=== PATIENT | female | born 1995 | race Two or more races ===

== ENCOUNTER → 2016-08-03 | Outpatient (CLI) | payer OTHER ==
[2016-08-03 12:14] LABS: CH 31.1; CHCM 36.1; HCT 36.1 % (34.0-46.0); HDW 3.02; HGB 12.6 gm/dL (11.4-16.0); MCH 30.3 pg (25.0-35.0); MCHC 34.9 g/dL (31.0-37.0); MCV 86.7 fL (80.0-100.0); Mean Platelet Volume 6.6; RBC 4.16 m/uL (3.80-5.40); RDW 12.8 % (11.5-15.5); WBC 8.8 k/uL (3.8-10.6)
[2016-08-03 12:34] LABS: Glucose 71 mg/dL (74-99); Non-African American GFR(MDRD) >60 (>60 ml/min/1.73 sqM)
[2016-08-03 13:06] LABS: Hepatitis B Surface Ag Index 0.06
[2016-08-04 05:34] LABS: Toxoplasma Antibody (IgG) <3.0 IU/mL (<7.2)
[2016-08-04 07:22] LABS: HIV-1/HIV-2 Ab Screen NONREAC (NON REAC)
== END | disposition home or self-care (01) ==
LOC: LABWHC1 11:23
PROVIDERS: ATTEND Obstetrics & Gynecology
DX: O26.811 Pregnancy related exhaustion and fatigue, first trimester (principal); Z3A.00 Weeks of gestation of pregnancy not specified
CPT/HCPCS: 36415; 82565; 82947; 85027; 86762; 86777; 86778; 86780; 86850; 86900; 86901; 87340; 87389

== ENCOUNTER → 2016-11-21 | Outpatient (CLI) | payer OTHER ==
[2016-11-21 09:23] LABS: CH 32.8; HDW 3.14; HGB 12.7 gm/dL (11.4-16.0); MCH 31.4 pg (25.0-35.0); MCHC 34.2 g/dL (31.0-37.0); MCV 91.7 fL (80.0-100.0); RBC 4.03 m/uL (3.80-5.40); RDW 14.3 % (11.5-15.5); WBC 8.8 k/uL (3.8-10.6)
== END | disposition home or self-care (01) ==
LOC: LABWHC1 08:12
PROVIDERS: ATTEND Obstetrics & Gynecology
DX: Z34.92 Encounter for supervision of normal pregnancy, unspecified, second trimester (principal); Z3A.00 Weeks of gestation of pregnancy not specified
CPT/HCPCS: 36415; 82950; 85027

== ENCOUNTER → 2016-11-27 | Outpatient (CLI) | payer OTHER ==
[2016-11-27 11:59] LABS: Glucose 3 Hour, Gest 57 mg/dL
== END | disposition home or self-care (01) ==
LOC: LABWHC1 07:36
PROVIDERS: ATTEND Obstetrics & Gynecology
DX: O24.419 Gestational diabetes mellitus in pregnancy, unspecified control (principal); Z3A.00 Weeks of gestation of pregnancy not specified
CPT/HCPCS: 36415; 82951; 82952

== ENCOUNTER 2016-12-01 11:17 | Outpatient (CLI) | payer OTHER ==
[2016-12-01 11:32] VITALS: BP 122/62; PULSE 72; RESP 16; TEMP 97.7
--- NOTE | 2016-12-02 08:28 | P.MSEPDOC ---
Presenting Problems - Arrival Data Date of Arrival on Unit: 12/01/16 Time of Arrival on Unit: 11:20 Mode of Transport: Ambulatory - Complaint OB-Reason for Admission/Chief Complaint: Decreased Movement Comment: no movment felt since noon yesterday 11/30/16 Medical History - Information : 2 Para: 1 Term: 1 : 0 Abortions: Spontaneous or Elective: 0 Number of Living Children: 1 - Gestational Age Expected Date of Delivery: 02/15/17 Gestational Age by CRISTIAN (wks/days): 29 Weeks and 2 Days Review of Systems - Review of Systems Constitutional: No problems Breast: No problems ENT: No problems Cardiovascular: No problems Respiratory: No problems Gastrointestinal: No problems Genitourinary: No problems Musculoskeletal: No problems Neurological: No problems Skin: No problems Vital Signs - Temperature Temperature: 97.7 F Temperature Source: Temporal Artery Scan - Pulse Right Sitting Brachial Pulse Rate: 72 Pulse Assessment Method: Automatic Cuff - Respirations Respiratory Rate: 16 Oxygen Delivery Method: Room Air O2 Sat by Pulse Oximetry: 97 - Blood Pressure Right Arm Sitting Blood Pressure: 122/62 Blood Pressure Mean: 82 Blood Pressure Source: Automatic Cuff Medical Screen Scoring (Pre) - Cervical Exam Dilation: Exam Deferred Effacement: Exam Deferred - Uterine Contractions Frequency: N/A Duration: N/A Intensity: N/A - Maternal Vital Signs Maternal Temperature: N/A Maternal Blood Pressure: N/A Signs of Preeclampsia: N/A Maternal Respirations: N/A - Maternal Trauma Maternal Trauma: N/A - Assessment Baseline FHR: 130 Heart Rate - NICHD Category: Category I (Normal) = 0 Position: N/A Station: N/A - Total Score Total Score (Pre): 0 - Level of Risk Level of Risk: Low (0-5) Physician Notification (Post) - Physician Notified Physician Notified Date: 12/01/16 Physician Notified Time: 12:15 Physician/Practitioner Notified:: dr Caballero New Order Received: Yes - Notification Comment Comment: Discharge home. Education completed re: tono melendez Disposition - Disposition OB Disposition: Discharge to home Discharge Date: 12/01/16 Discharge Time: 12:22 I agree with the RN Medical Screening Exam: Yes Risk & Benefit of care provided described in d/c instruction: Yes Diagnosis: DECREASED MOVEMENTS, THIRD TRIMESTER, FETUS 1
== END 2016-12-01 12:23 | disposition home or self-care (01) ==
LOC: FBPOP 11:17
PROVIDERS: ATTEND Obstetrics & Gynecology
DX: O36.8130 Decreased fetal movements, third trimester, not applicable or unspecified (principal); Z3A.29 29 weeks gestation of pregnancy
CPT/HCPCS: 59025; G0463; 99213

== ENCOUNTER 2017-02-11 20:38 | Inpatient (IN) | payer OTHER ==
[2017-02-11] MEDS ORDERED: OXYTOCIN 10 UNIT/ML 1 ML VIAL IM PRN (21:17)
[2017-02-11] MEDS ORDERED: METHYLERGONOVINE 0.2 MG/ML 1 ML AMP IM PRN (21:17)
[2017-02-11] MEDS ORDERED: LIDOCAINE 1% (PF) 10 MG/ML (30 ML SDV) SQ PRN (21:17)
[2017-02-11] MEDS ORDERED: CARBOPROST TROMETHAMINE 250 MCG/ML 1 ML AMP IM PRN (21:17)
[2017-02-11] MEDS ORDERED: TERBUTALINE 1 MG/ML VIAL SQ PRN (21:17)
[2017-02-11] MEDS ORDERED: OXYTOCIN 20 UNITS/1000 ML NS 1,000 ML IV SCH (21:30)
[2017-02-11] MEDS: LACTATED RINGERS 1,000 ML IV SCH (21:38)
[2017-02-11 21:54] VITALS: BMI 33.5
[2017-02-11 22:00] LABS: Basophils % (A) 0 %; CH 31.5; CHCM 35.2; Eosinophils # (A) 0.2 k/uL (0-0.7); Eosinophils % (A) 1 %; HCT 39.3 % (34.0-46.0); HGB 13.2 gm/dL (11.4-16.0); Luc # (Auto) 0.09; Luc % (Auto) 1; Lymphocytes # (A) 2.9 k/uL (1.0-4.8); Lymphocytes % (A) 21 %; MCH 30.3 pg (25.0-35.0); MCHC 33.6 g/dL (31.0-37.0); MCV 90.1 fL (80.0-100.0); Mean Platelet Volume 7.3; Monocytes # (A) 0.8 k/uL (0-1.0); Monocytes % (A) 6 %; Neutrophils # (A) 9.9 k/uL (1.3-7.7); Neutrophils % (A) 71 %; RBC 4.36 m/uL (3.80-5.40); RDW 15.1 % (11.5-15.5); WBC 13.9 k/uL (3.8-10.6); WBC (Perox) 14.38
[2017-02-11] MEDS ORDERED: BUTORPHANOL 1 MG/ML 1 ML VIAL IV PRN (22:20)
--- NOTE | 2017-02-11 22:35 | P.HPOB ---
History of Present Illness H&P Date: 02/11/17 Chief Complaint: Leaking fluid. This patient is a pleasant 21-year-old 2 para 1 female estimated date of confinement 02/15/2017 estimated gestational age 39-3/7 weeks who presents to labor and delivery with a gush of fluid at approximately 7:00 this evening. Patient's care is per . appears to be complicated by a grade 3 placenta. Patient denies other complications during this . Most recent ultrasound on January 05 showed growth that was normal. Review of Systems Constitutional: Denies chills, Denies fever Cardiovascular: Denies chest pain, Denies shortness of breath Gastrointestinal: Reports heartburn Genitourinary: Reports Menstruation: Reports amenorrhea Past Medical History Additional Past Medical History / Comment(s): Patient has attention deficit disorder, TMJ, patellar tendinitis, and history of headaches. History of Any Multi-Drug Resistant Organisms: None Reported Past Surgical History: No Surgical Hx Reported Past Anesthesia/Blood Transfusion Reactions: No Reported Reaction Past Psychological History: ADD/ADHD Smoking Status: Never smoker Past Alcohol Use History: None Reported Past Drug Use History: None Reported - Past Family History Mother Family Medical History: Thyroid Disorder Medications and Allergies Home Medications Medication Instructions Recorded Confirmed Type Pnv,Calcium 72/Iron/Folic Acid 1 each PO DAILY 11/19/14 02/11/17 History [ Plus Tablet] Allergies Allergy/AdvReac Type Severity Reaction Status Date / Time No Known Allergies Allergy Verified 02/11/17 20:49 Exam - Vital Signs Vital signs: Vital Signs Temp Pulse Resp BP 02/11/17 20:50 97.9 F 90 18 139/90 Intake and Output 02/11/17 02/11/17 02/11/17 06:59 14:59 22:59 Other: Weight 85.729 kg Patient Weight 02/12/17 06:59 Weight 85.729 kg - OBG Physical Exam Abdomen: bowel sounds normal, no diffuse tenderness, no bruit present, no guarding noted, no hepatomegaly, no splenomegaly, no mass Vagina: normal moisture, no discharge Cervix: Cervix is 2-3 cm dilated soft -2 station. Patient reports clear fluid drainage however I see no amniotic fluid. Cervix: no lesion, no discharge Uterus: enlarged (Follow-up her Dr. Caballero was 36.5 cm) Results blood work shows she is B positive, rubella nonimmune, hepatitis B, RPR was nonreactive, group B strep was negative. Result Diagrams: 02/11/17 21:40 Abnormal Lab Results - Last 24 Hours (Table) 02/11/17 Range/Units 21:40 WBC 13.9 H (3.8-10.6) k/uL Neutrophils # 9.9 H (1.3-7.7) k/uL Assessment and Plan (1) Third trimester Narrative/Plan: This patient is a pleasant 21-year-old 2 para 1 female 39-3/7 weeks gestation with spontaneous rupture membranes. Patient this time is requested to ambulate. There is no cervical change with ambulation and recommended proceed with Pitocin augmentation of labor. Anticipate vaginal delivery. Current Visit: Yes Status: Acute Code(s): Z34.93 - ENCNTR FOR SUPRVSN OF NORMAL PREG, UNSP, THIRD TRIMESTER SNOMED Code(s): 86024499 (2) Spontaneous rupture of amniotic membranes Current Visit: Yes Status: Acute Code(s): WKT0979 - SNOMED Code(s): 657257675
[2017-02-11] MEDS ORDERED: fentaNYL (PF) 50 MCG/ML 5 ML AMP ONE (23:50)
[2017-02-11] MEDS ORDERED: SODIUM CHLORIDE 0.9% 100 ML BAG ONE (23:50)
[2017-02-11] MEDS ORDERED: BUPIVACAINE (PF) 0.25% 30 ML VIAL ONE (23:50)
[2017-02-12] MEDS ORDERED: BUPIVACAINE (PF) 0.25% 25 ML, fentaNYL (PF) 200 MCG in SODIUM CHLORIDE 0.9% 71 ML EPIDURAL ONE (00:09)
[2017-02-12] MEDS: LACTATED RINGERS 1,000 ML IV SCH (00:09)
[2017-02-12] MEDS ORDERED: HYDROCORTISONE 2.5% RECTAL CREAM 30 GM TUBE RECTAL PRN (03:18)
[2017-02-12] MEDS ORDERED: MEASLES-MUMPS-RUBELLA VACC/PF 12,500 UNIT/0.5 ML VIAL SQ ONE (03:18)
[2017-02-12] MEDS ORDERED: diphenhydrAMINE 25 MG CAP PO PRN (03:18)
[2017-02-12] MEDS ORDERED: ACETAMINOPHEN TAB 325 MG TAB PO PRN (03:18)
[2017-02-12] MEDS ORDERED: BENZOCAINE/MENTHOL SPRAY 1 GM/SPRAY AEROSOL TOPICAL PRN (03:18)
[2017-02-12] MEDS ORDERED: BISACODYL 10 MG SUPP RECTAL PRN (03:18)
[2017-02-12] MEDS ORDERED: LANOLIN CREAM 5 GM TUBE TOPICAL PRN (03:18)
[2017-02-12] MEDS ORDERED: Acetaminophen-Codeine 300-30mg TAB PO PRN ×2 (03:18)
[2017-02-12] MEDS ORDERED: ZOLPIDEM 5 MG TAB PO PRN (03:18)
[2017-02-12] MEDS ORDERED: diphenhydrAMINE 50 MG/ML 1 ML VIAL IVP PRN (03:18)
[2017-02-12] MEDS ORDERED: WITCH HAZEL 1 EACH MED..PAD TOPICAL PRN (03:18)
[2017-02-12] MEDS ORDERED: SIMETHICONE 80 MG CHEWABLE PO PRN (03:18)
--- NOTE | 2017-02-12 03:23 | P.PROBDLV ---
Vaginal Delivery Note - . Vaginal Delivery Note: Normal spontaneous vaginal delivery viable female infant Apgars 8 and 9. Please see dictated H&P for intimate details of this patient's admission. Brief summary this pleasant 21-year-old 2 para 1 female 39-4/7 weeks gestation was admitted to labor and delivery with spontaneous rupture membranes at 7:00 last evening. Patient is admitted she does ambulate and was then given Pitocin augmentation of labor. Patient gets an epidural for pain control. Patient progresses quickly and pushes one time and pushes the head to the perineum. Posterior perineum was supported we have controlled delivery of 's head over the intact perineum. Mouth and nares are bulb suctioned. There is a nuchal cord 1. With gentle downward traction we then have deliver the anterior and posterior shoulder and rest this infant's body. Some vigorous viable female Apgars are 8 and 9 delivery time was 0256 hours. After delivery of the infant the is late on the mother's abdomen. At this time the cord is then doubly clamped and cut. Placenta spontaneously delivered intact. Inspection of perineum shows a first-degree posterior laceration, no other lacerations are noted. This is infiltrated with 1% lidocaine and reapproximated using a 3-0 Vicryl in the usual fashion good reapproximation is noted. Assessment blood loss 100 mL there is no complications. All counts correct 3. Infant and mother stable delivery room.
[2017-02-12] MEDS: IBUPROFEN 600 MG TAB PO PRN ×2 (07:34→15:46)
--- NOTE | 2017-02-12 11:41 | P.MSEPDOC ---
Presenting Problems - Arrival Data Date of Arrival on Unit: 02/11/17 Time of Arrival on Unit: 21:07 Mode of Transport: Ambulatory - Complaint OB-Reason for Admission/Chief Complaint: Rule Out SROM Medical History - Information : 2 Para: 1 Term: 1 : 0 Abortions: Spontaneous or Elective: 0 Number of Living Children: 1 - Gestational Age Gestational Age by CRISTIAN (wks/days): 39 Weeks and 4 Days Review of Systems - Review of Systems Constitutional: No problems Breast: No problems ENT: No problems Cardiovascular: No problems Respiratory: No problems Gastrointestinal: No problems Genitourinary: No problems Musculoskeletal: No problems Neurological: No problems Skin: No problems Vital Signs - Temperature Temperature: 98.6 F Temperature Source: Oral - Pulse Right Brachial Pulse Rate: 78 Pulse Assessment Method: Pulse Oximetry - Respirations Respiratory Rate: 16 Oxygen Delivery Method: Room Air - Blood Pressure Right Arm Blood Pressure: 122/73 Blood Pressure Mean: 89 Blood Pressure Source: Automatic Cuff Medical Screen Scoring (Pre) - Cervical Exam Dilation: 1-3 cm = 1 Effacement: More than 50% = 2 Membranes: Ruptured = 3 - Uterine Contractions Frequency: > 5 minutes apart = 1 Duration: N/A Intensity: N/A - Maternal Vital Signs Maternal Temperature: N/A Maternal Blood Pressure: N/A Signs of Preeclampsia: N/A Maternal Respirations: N/A - Pain Assessment Pain Intensity: 0 - Maternal Trauma Maternal Trauma: N/A - Assessment Baseline FHR: 130 Heart Rate - NICHD Category: Category I (Normal) = 0 - Total Score Total Score (Pre): 7 - Level of Risk Level of Risk: Medium (6-9) Physician Notification (Pre) - Physician Notified Physician Notified Date: 02/11/17 Physician Notified Time: 21:09 Physician/Practitioner Notifed:: Dr. Oliveira Spoke With: Dr. Oliveira New Order Received: Yes - Notification Comment Comment: Dr. Oliveira in hospital in a sleep room, will call when needed Disposition - Disposition OB Disposition: Admit, LDRP Suite I agree with the RN Medical Screening Exam: Yes Risk & Benefit of care provided described in d/c instruction: Yes Diagnosis: ENCOUNTER FOR FULL-TERM UNCOMPLICATED DELIVERY
[2017-02-12] MEDS: SENNOSIDES-DOCUSATE SODIUM 1 EACH TAB PO SCH ×2 (15:19→16:53)
[2017-02-13] MEDS: IBUPROFEN 600 MG TAB PO PRN (03:42)
[2017-02-13] MEDS: SENNOSIDES-DOCUSATE SODIUM 1 EACH TAB PO SCH (08:01)
[2017-02-13 10:55] VITALS: BP 123/69; PULSE 69; RESP 18; TEMP 98.1
--- NOTE | 2017-02-13 11:10 | P.DS ---
Providers Date of admission: 02/11/17 21:07 Expected date of discharge: 02/13/17 Attending physician: Zohreh Caballero Primary care physician: Stated None Hospital Course: Elena is doing very well day 1. She is involuting, voiding, and she is tolerating her diet. She voices no complaints and is requesting discharge home today. Vital signs are stable and afebrile. Heart regular, lungs clear, extremities without pain. Abdomen soft uterus is firm lochia is reported light. Assessment day 1. Plan discharged home follow up with Dr. Milton in 6 weeks. All of the discharge instructions were reviewed and all questions are answered for her prior to discharge her discharge. Patient Condition at Discharge: Good Plan - Discharge Summary New Discharge Prescriptions: No Action Pnv,Calcium 72/Iron/Folic Acid [ Plus Tablet] 1 each PO DAILY Discharge Medication List Pnv,Calcium 72/Iron/Folic Acid [ Plus Tablet] 1 each PO DAILY 11/19/14 [ History] Follow up Appointment(s)/Referral(s): Zohreh Caballero DO [Doctor of Osteopathic Medicine] - 1 Week Activity/Diet/Wound Care/Special Instructions: O heavy lifting, limit stairs and driving, and pelvic rest. If any high temperatures, heavy bleeding, or severe pain call my office Discharge Disposition: HOME SELF-CARE
== END 2017-02-13 12:30 | disposition home or self-care (01) | DRG 560 ==
LOC: FBPOP 20:38 → 4FBP 21:07
PROVIDERS: ADMIT Obstetrics & Gynecology; ATTEND Obstetrics & Gynecology
PROC: 10E0XZZ Delivery of Products of Conception, External Approach (ICD-10-PCS; principal; 2017-02-12)
PROC: 0HQ9XZZ Repair Perineum Skin, External Approach (ICD-10-PCS; 2017-02-12)
DX: O69.81X0 Labor and delivery complicated by cord around neck, without compression, not applicable or unspecified (principal); O99.344 Other mental disorders complicating childbirth; F90.9 Attention-deficit hyperactivity disorder, unspecified type; Z37.0 Single live birth; O70.0 First degree perineal laceration during delivery; O99.89 Other specified diseases and conditions complicating pregnancy, childbirth and the puerperium; M76.50 Patellar tendinitis, unspecified knee; M26.609 Unspecified temporomandibular joint disorder, unspecified side; Z3A.39 39 weeks gestation of pregnancy; Z84.89 Family history of other specified conditions
CPT/HCPCS: 59025; 84112; 85025; 88307; 90707; 99213

== ENCOUNTER → 2018-02-16 | Outpatient (CLI) | payer OTHER ==
[2018-02-16 14:09] LABS: Basophils % (A) 0 %; Eosinophils # (A) 0.2 k/uL (0-0.7); Eosinophils % (A) 2 %; HCT 39.9 % (34.0-46.0); Lymphocytes % (A) 41 %; MCH 30.7 pg (25.0-35.0); MCHC 35.2 g/dL (31.0-37.0); MCV 87.3 fL (80.0-100.0); Mean Platelet Volume 6.5; Monocytes # (A) 0.3 k/uL (0-1.0); Monocytes % (A) 5 %; Neutrophils # (A) 3.6 k/uL (1.3-7.7); Neutrophils % (A) 50 %; Platelet Count 317 k/uL (150-450); RBC 4.57 m/uL (3.80-5.40); RDW 12.6 % (11.5-15.5); WBC 7.1 k/uL (3.8-10.6)
[2018-02-16 14:21] LABS: ALT 27 U/L (9-52); AST 26 U/L (14-36); Albumin 4.7 g/dL (3.5-5.0); Alkaline Phosphatase 77 U/L (38-126); Anion Gap 8 mmol/L; Blood Urea Nitrogen 7 mg/dL (7-17); Calcium 9.5 mg/dL (8.4-10.2); Carbon Dioxide 25 mmol/L (22-30); Chloride 107 mmol/L (98-107); Cholesterol 149 mg/dL (<200); Glucose 84 mg/dL (74-99); HDL Cholesterol 41 mg/dL (40-60); LDL Cholesterol,Calculated 97 mg/dL (0-99); Potassium 4.8 mmol/L (3.5-5.1); Sodium 140 mmol/L (137-145); Total Bilirubin 0.7 mg/dL (0.2-1.3); Total Protein 7.6 g/dL (6.3-8.2); Triglycerides 57 mg/dL (<150)
[2018-02-16 14:36] LABS: T4, Free (Free Thyroxine) 0.87 ng/dL (0.78-2.19)
--- NOTE | 2018-02-21 08:52 | USB ---
Reason for exam: clinical finding. Indicated problem(s): lump or thickening in the right breast. Physical Findings: Nurse Summary: Patient complains of right breast lump x 2 years, increase in size, currently (nurse mj). US Breast BILAT Right complete breast ultrasound includes all four quadrants, the retroareolar region and axilla. Finding demonstrates a 0.6 x 0.5 x 1.0cm solid lesion at 11 o'clock, possible fibroadenoma or lactating adenoma, 6 month follow up recommended. Patient reports it has been there for 2 years, now slightly larger. Left complete breast ultrasound includes all four quadrants, the retroareolar region and axilla. Finding demonstrates nipple ducts. No sonographic correlate to the nurse palpated 3 o'clock finding. These results were verbally communicated with the patient and result sheet given to the patient on 02/16/18. ASSESSMENT: Probably benign, BI-RAD 3 RECOMMENDATION: Ultrasound of the right breast in 6 months. (11 o'clock palpable)
== END | disposition home or self-care (01) ==
LOC: RADUSWWP 12:10
PROVIDERS: ATTEND Family Medicine
DX: N63.11 Unspecified lump in the right breast, upper outer quadrant (principal); Z13.220 Encounter for screening for lipoid disorders; Z00.00 Encounter for general adult medical examination without abnormal findings; E04.0 Nontoxic diffuse goiter
CPT/HCPCS: 36415; 80053; 80061; 84439; 84443; 84481; 85025; 86376

== ENCOUNTER → 2018-08-10 | Outpatient (CLI) | payer SELFPAY ==
--- NOTE | 2018-08-11 08:54 | USB ---
Reason for exam: follow-up at short interval from prior study. Physical Findings: Nurse Summary: right breast palpable 12 o'clock 1 x 1.5cm, movable, non-tender (nurse ts). US Breast RT Right complete breast ultrasound includes all four quadrants, the retroareolar region and axilla. Finding demonstrates no cystic or solid lesion seen. No reproducible mass. Previously seen possible lactating fibroadenoma is no longer clearly defined. As this is palpable, if there is any growth clinically repeat ultrasound would be recommended. These results were verbally communicated with the patient and result sheet given to the patient on 08/10/18. ASSESSMENT: Negative, BI-RAD 1 RECOMMENDATION: Routine screening mammogram of both breasts at age 40. (or sooner if clinically indicated) Manage patient on a clinical basis.
== END | disposition home or self-care (01) ==
LOC: RADUSWWP 14:14
PROVIDERS: ATTEND Family Medicine
DX: R92.8 Other abnormal and inconclusive findings on diagnostic imaging of breast (principal)

== ENCOUNTER 2018-10-30 18:26 | Emergency (ER) | payer OTHER ==
--- NOTE | 2018-10-30 19:10 | ED ---
Psych HPI - General Chief Complaint: Psychiatric Symptoms Stated Complaint: EPS eval Time Seen by Provider: 10/30/18 18:29 Source: patient, police, EMS Mode of arrival: ambulatory - History of Present Illness Initial Comments: 23-year-old female patient presents to the emergency department today for psychiatric evaluation. Patient states that today she is having thoughts of jaspal cide and did go into the garage and get the shot gun. Patient states she did pull the trigger however the gun was not loaded. States she was unsure how to load the gun. States her intention was to kill herself. Patient reports history of frequent mood swings. States some days it is hard for her to get out of bed and other days she feels that life is great and she is able to function normally. Patient states that she has tried several times in the past to commit suicide. Patient states that she did have counseling as a teenager however reports none as an adult. Denies ever taking any medications for depression. She does admit to drinking alcohol today. Denies street drug use. Denies any chance of . She denies any current physical symptoms or concerns. Patient denies any recent rash, fever, chills, shortness breath, chest pain, abdominal pain, nausea, vomiting, diarrhea, constipation, back pain, numbness, tingling, dizziness, weakness, hematuria, dysuria, urinary urgency, urinary frequency, headache, visual changes, or any other complaints. - Related Data Home Medications Medication Instructions Recorded Confirmed No Known Home Medications 10/30/18 10/30/18 Allergies Allergy/AdvReac Type Severity Reaction Status Date / Time No Known Allergies Allergy Verified 10/30/18 19:05 Review of Systems ROS Statement: Those systems with pertinent positive or pertinent negative responses have been documented in the HPI. ROS Other: All systems not noted in ROS Statement are negative. Past Medical History Past Medical History: No Reported History Additional Past Medical History / Comment(s): Patient has attention deficit disorder, TMJ, patellar tendinitis, and history of headaches. History of Any Multi-Drug Resistant Organisms: None Reported Past Surgical History: No Surgical Hx Reported Past Anesthesia/Blood Transfusion Reactions: No Reported Reaction Past Psychological History: ADD/ADHD Smoking Status: Never smoker Past Alcohol Use History: Occasional Past Drug Use History: None Reported - Past Family History Mother Family Medical History: Thyroid Disorder General Exam Limitations: no limitations General appearance: alert, in no apparent distress, other (Physical well- developed, well-nourished adult female patient in no acute distress. Vital signs upon presentation are temperature 98.1F, pulse 95, respirations 18, blood pressure 141/89, pulse ox 99% on room air.) Eye exam: Present: normal appearance, PERRL, EOMI. Absent: scleral icterus, conjunctival injection, periorbital swelling ENT exam: Present: normal exam, normal oropharynx, mucous membranes moist Respiratory exam: Present: normal lung sounds bilaterally. Absent: respiratory distress, wheezes, rales, rhonchi, stridor Cardiovascular Exam: Present: regular rate, normal rhythm, normal heart sounds. Absent: systolic murmur, diastolic murmur, rubs, gallop, clicks GI/Abdominal exam: Present: soft, normal bowel sounds. Absent: distended, tenderness, guarding, rebound, rigid Neurological exam: Present: alert, oriented X3, CN II-XII intact Psychiatric exam: Present: depressed, suicidal ideation, other (Tearful). Absent: normal affect, normal mood, homicidal ideation Skin exam: Present: warm, dry, intact, normal color. Absent: rash Course Vital Signs 10/30/18 18:27 Temperature 98.1 F Pulse Rate 95 Respiratory 18 Rate Blood Pressure 141/89 O2 Sat by Pulse 99 Oximetry Medical Decision Making - Medical Decision Making 23-year-old female patient presented to the emergency department today for evaluation of suicidal ideation. Patient was found in the garage with a shotgun attempting to kill herself. Patient has been struggling with depression for quite some time. She has not taking any medications currently. She was seen and evaluated by emergency psychiatric services after being medically clear. It is felt that she would benefit from inpatient mission at this time will be transferred to the mental health unit. - Lab Data Lab Results 10/30/18 10/30/18 Range/Units 18:30 18:30 Urine HCG, Qual Not Detected (Not Detectd) Urine Opiates Screen Not Detected (NotDetected) Ur Oxycodone Screen Not Detected (NotDetected) Urine Methadone Screen Not Detected (NotDetected) Ur Propoxyphene Screen Not Detected (NotDetected) Ur Barbiturates Screen Not Detected (NotDetected) U Tricyclic Antidepress Not Detected (NotDetected) Ur Phencyclidine Scrn Not Detected (NotDetected) Ur Amphetamines Screen Not Detected (NotDetected) U Methamphetamines Scrn Not Detected (NotDetected) U Benzodiazepines Scrn Not Detected (NotDetected) Urine Cocaine Screen Not Detected (NotDetected) U Marijuana (THC) Screen Not Detected (NotDetected) Disposition Clinical Impression: Depression, Suicidal ideation Disposition: TRANSFER TO PSYCH HOSP/UNIT Condition: Serious Referrals: Mally Brandon DO [Primary Care Provider] - 1-2 days - Out of Hospital Transfer - Req. Specs Out of Hospital Transfer - Requested Specifics: Psychiatric Non-ICU ([facility])
[2018-10-30] MEDS ORDERED: LORazepam 1 MG TAB PO STA ×2 (19:17→20:37)
[2018-10-30 19:26] LABS: Amphetamine Screen,Urine Not Detected (NotDetected); Barbiturate Screen,Urine Not Detected (NotDetected); Benzodiazepines Screen,Urine Not Detected (NotDetected); Cocaine Screen,Urine Not Detected (NotDetected); Methadone Screen, Urine Not Detected (NotDetected); Opiate Screen,Urine Not Detected (NotDetected); Oxycodone Screen, Urine Not Detected (NotDetected); Phencyclidine Screen,Urine Not Detected (NotDetected); Tricyclic Antidepressant,Urine Not Detected (NotDetected); Urn Cannabinoid Scrn Not Detected (NotDetected)
[2018-10-30] MEDS ORDERED: NICOTINE 21MG/24HR PATCH TRANSDERM STA (19:56)
[2018-10-30] MEDS ORDERED: ACETAMINOPHEN TAB 500 MG TAB PO STA (20:10)
[2018-10-31 02:42] LABS: Basophils # (A) 0.1 k/uL (0-0.2); Basophils % (A) 1 %; Eosinophils # (A) 0.2 k/uL (0-0.7); Eosinophils % (A) 4 %; HCT 38.4 % (34.0-46.0); HGB 13.3 gm/dL (11.4-16.0); Lymphocytes % (A) 37 %; MCHC 34.6 g/dL (31.0-37.0); MCV 89.6 fL (80.0-100.0); Mean Platelet Volume 6.9; Monocytes # (A) 0.3 k/uL (0-1.0); Monocytes % (A) 6 %; Neutrophils # (A) 2.8 k/uL (1.3-7.7); Neutrophils % (A) 51 %; Platelet Count 258 k/uL (150-450); RBC 4.28 m/uL (3.80-5.40); RDW 14.1 % (11.5-15.5); WBC 5.5 k/uL (3.8-10.6)
[2018-10-31 02:52] LABS: ALT 32 U/L (9-52); AST 26 U/L (14-36); African American GFR (CKD) >90 (>60 ml/min/1.73 sqM); Albumin 4.2 g/dL (3.5-5.0); Alcohol <10 mg/dL; Alkaline Phosphatase 70 U/L (38-126); Anion Gap 10 mmol/L; Blood Urea Nitrogen 10 mg/dL (7-17); Calcium 9.2 mg/dL (8.4-10.2); Carbon Dioxide 23 mmol/L (22-30); Chloride 109 mmol/L (98-107); Glucose 84 mg/dL (74-99); Potassium 4.1 mmol/L (3.5-5.1); Sodium 142 mmol/L (137-145); Total Bilirubin 0.3 mg/dL (0.2-1.3); Total Protein 6.7 g/dL (6.3-8.2)
[2018-10-31 06:17] VITALS: BP 129/76; PULSE 62; RESP 16; TEMP 98
== END 2018-10-31 08:09 ==
LOC: EC 18:26
DX: F32.9 Major depressive disorder, single episode, unspecified (principal); R45.851 Suicidal ideations
CPT/HCPCS: 82075; 36415; 80053; 85025; 81025; 80306; 99285; G0480; 80320

== ENCOUNTER → 2020-11-01 | Outpatient (CLI) | payer OTHER ==
--- NOTE | 2020-11-05 14:31 | USB ---
Reason for exam: clinical finding. Indicated problem(s): lump or thickening in both breasts. Physical Findings: Nurse Summary: Patient complains of right breast lump x 5 years, left breast lumps x 3 for 2 weeks (nurse mj). US Breast BILAT Right complete breast ultrasound includes all four quadrants, the retroareolar region and axilla. Finding demonstrates a 1.6 x 1.3 x 0.6cm lobular, solid, hypoechoic lesion at 11 o'clock, a 0.7 x 0.6 x 0.3cm lymph node at 11 o'clock and a 1.1 x 0.8 x 0.6cm lymph node at the axilla. Left complete breast ultrasound includes all four quadrants, the retroareolar region and axilla. Finding demonstrates a 1.6 x 1.5 x 0.6cm lobular, irregular lesion at 12 o'clock, subtle, suspicious, biopsy recommended, a 0.7 x 0.8 x 0.4cm lymph node at 3 o'clock and a 0.5 x 0.7 x 0.4cm lobular, solid lesion at 11 o'clock. These results were verbally communicated with the patient and result sheet given to the patient on 11/01/20. ASSESSMENT: Suspicious, BI-RAD 4 RECOMMENDATION: Ultrasound core biopsy of both breasts. (right and left breast at 11 o'clock) Called Dr. Brandon's office with mammographic findings. Biopsy scheduled for 11/13/20 at 10:30. PRELIMINARY REPORT CALLED AND FAXED TO DR. BRANDON ON 11/05/20.
== END | disposition home or self-care (01) ==
LOC: RADUSWWP 14:54
PROVIDERS: ATTEND Family Medicine
DX: N63.11 Unspecified lump in the right breast, upper outer quadrant (principal)

== ENCOUNTER → 2020-11-13 | Day surgery (SDC) | payer OTHER ==
[2020-11-13 10:03] VITALS: RESP 16
--- NOTE | 2020-11-13 11:40 | USB ---
EXAMINATION TYPE: US biopsy breast VAD RT, US discontinued breast bx LT DATE OF EXAM: 11/13/2020 CLINICAL HISTORY: N63 Lump. TECHNIQUE: Ultrasound guided core biopsy of right 11:00 breast. Discontinued biopsy left breast 12:00. COMPARISON: NONE FINDINGS: The procedure of ultrasound guided core biopsy was explained to the patient. Benefits, alternatives, and risks were discussed. An informed consent was then obtained. Prebiopsy ultrasound of the left 12:00 area of concern was performed. A distinct lesion could not be seen with certainty and therefore biopsy was discontinued. Six-month follow-up is advised. The patient was placed in supine positioning for imaging and for the procedure. The overlying skin was prepped and draped in usual sterile fashion. Lidocaine buffered with bicarbonate was used as anesthetic into the skin and subcutaneous tissue up to area of concern in the right 11:00 breast. A elyse was made with surgical scalpel. Under ultrasound guidance, a 12-gauge vacuum assisted biopsy gun device was used to obtain 4 core samples. Following this, a biopsy clip was left in lesion. The patient tolerated the procedure well without any immediate complication. The patient was kept in the radiology department for short stay after the procedure and then discharged home in stable condition. IMPRESSION: Successful, uncomplicated ultrasound guided core biopsy of area of concern in the right 11:00 breast, full pathology results to follow. Six-month follow-up by ultrasound for left 12:00 area of concern. 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 Rare microcalcification identified. See note. Recommendation Follow up ultrasound of the right breast in 6 months. SANTO
[2020-11-13 12:07] VITALS: BP 106/70; PULSE 55; TEMP 98.1
== END ==
LOC: RADUSWWP 09:33
PROVIDERS: ATTEND Family Medicine
DX: D24.1 Benign neoplasm of right breast (principal); N62 Hypertrophy of breast; N60.11 Diffuse cystic mastopathy of right breast; R92.0 Mammographic microcalcification found on diagnostic imaging of breast; N60.81 Other benign mammary dysplasias of right breast
CPT/HCPCS: 88305; 88342; 19083; 76641; A4648; J2001

== ENCOUNTER → 2021-06-05 | Outpatient (CLI) | payer OTHER ==
--- NOTE | 2021-06-05 10:51 | USB ---
Reason for exam: follow-up at short interval from prior study. History: Benign US biopsy breast VAD RT of the right breast, November 13, 2020. US discontinued breast bx LT of the left breast, November 13, 2020. Physical Findings: A clinical breast exam by your physician is recommended on an annual basis and results should be correlated with mammographic findings. US Breast Limited BILAT Right limited breast ultrasound including focal area of concern, retroareolar and axilla demonstrates a 1.6 x 0.5 x 1.2cm solid, hypoechoic lesion at 11 o'clock and a 0.7 x 0.3 x 0.7cm lymph node at 11 o'clock. Left limited breast ultrasound including focal area of concern, retroareolar and axilla demonstrates a 0.4 x 0.4 x 0.5cm solid lesion at 11 o'clock and a 0.7 x 0.3 x 0.6cm lymph node at 3 o'clock. These results were verbally communicated with the patient and result sheet given to the patient on 06/05/21. ASSESSMENT: Probably benign, BI-RAD 3 RECOMMENDATION: Ultrasound of both breasts in 6 months.
== END | disposition home or self-care (01) ==
LOC: RADUSWWP 09:55
PROVIDERS: ATTEND Family Medicine
DX: N60.21 Fibroadenosis of right breast (principal); N60.22 Fibroadenosis of left breast

== ENCOUNTER → 2021-12-12 | Outpatient (CLI) | payer OTHER ==
--- NOTE | 2021-12-12 10:45 | USB ---
Reason for Exam: Follow-up at short interval from prior study. Patient History: 11/13/2020, Benign Core Biopsy on the right side. 11/13/2020, US discontinued breast bx LT on the left side. Technique: Method: Targeted. Findings: The upper outer quadrant of both breasts was scanned. Finding 1: Mass. Laterality: Right. Size 15 x 5 x 12 mm. 11 O'clock Quadrant: Upper outer. 3 cm cm from nipple. Shape: Oval. Margin: Circumscribed (Well-Defined or Sharply-Defined). Finding 2: Mass. Laterality: Left. Size 3 x 3 x 5 mm. 11 O'clock Quadrant: Upper outer. 3 cm cm from nipple. There is a 0.3 x 0.3 cm hypoechoic area within the 11:00 position 3 cm from the nipple within the left breast. This areas reproduced on real-time observation. This appears stable from comparison however some vague shadowing may be present. This is not felt to be a cyst. Reattempting a biopsy is recommended. This was discussed with the patient who would feel comfortable with a reattempted biopsy. Overall Assessment: Suspicious, BI-RAD 4 Management: Ultrasound Core Biopsy of the left breast. A clinical breast exam by your physician is recommended on an annual basis and results should be correlated with mammographic findings. Electronically signed and approved by: Primitivo Johnson D.O. Radiologis
== END | disposition home or self-care (01) ==
LOC: RADUSWWP 09:43
PROVIDERS: ATTEND Family Medicine
DX: R92.8 Other abnormal and inconclusive findings on diagnostic imaging of breast (principal)

== ENCOUNTER → 2021-12-24 | Day surgery (SDC) | payer OTHER ==
--- NOTE | 2021-12-31 10:19 | USB ---
Pathology Description: Location: 11 o'clock, upper inner quadrant. Marker Left Behind. Needle Type: Mammotone Cores: 4 Gauge: 13 The procedure of ultrasound guided core biopsy was explained to the patient. Benefits, alternatives, and risks were discussed. An informed consent was then obtained. The patient was placed in supine positioning for imaging and for the procedure. Preprocedure ultrasound redemonstrates 3 mm irregular hypoechoic avascular area at 11:00 position 3 cm distance from nipple. The overlying skin was prepped and draped in usual sterile fashion. Lidocaine is used as anesthetic into the skin and subcutaneous tissue up to area of concern in the left breast. Under ultrasound guidance, a vacuum assisted biopsy gun device was used to obtain 4 core samples. Following this, a biopsy clip was left in lesion. The patient tolerated the procedure well without any immediate complication. The patient was kept in the radiology department for short stay after the procedure and then discharged home in stable condition. Postprocedure mammogram: The patient was transferred to mammography for physician ordered post procedure mammogram for clip placement verification. I asked for one image but 2 images were performed. Impression: Successful, uncomplicated ultrasound guided core biopsy of area of concern in the left breast, full pathology results to follow. Low index of suspicion noted at time of procedure. Pathology Results: Specimen was inadequate. LEFT BREAST, ELEVEN O'CLOCK, ULTRASOUND GUIDED CORE BIOPSY: No tissue was received in the specimen container, non-diagnostic. See note. Tissue Density: Left: The breast tissue is heterogeneously dense. This may lower the sensitivity of mammography. Overall Assessment: Probably benign, BI-RAD 3 Assessment: MG diagnostic mammo LT wo CAD. - Left: Probably benign, BI-RAD 3. Management: Diagnostic Breast Ultrasound of the left breast in 6 months. Electronically signed and approved by: Hasmukh Acosta M.D.
== END ==
LOC: RADUSWWP 07:58
PROVIDERS: ATTEND Family Medicine
DX: N63.0 Unspecified lump in unspecified breast (principal)
CPT/HCPCS: 77065; 88305

== ENCOUNTER → 2022-01-20 | Day surgery (SDC) | payer OTHER ==
--- NOTE | 2022-01-23 11:38 | USB ---
Pathology Description: Location: 11 o'clock, upper outer quadrant. Marker Left Behind. Needle Type: Mammotome Cores: 5 Skin Nicks: 1 Gauge: 13 The procedure of ultrasound guided core biopsy was explained to the patient. Benefits, alternatives, and risks were discussed. An informed consent was then obtained. The patient was placed in supine positioning for imaging and for the procedure. The overlying skin was prepped and draped in usual sterile fashion. Lidocaine was used as anesthetic into the skin and subcutaneous tissue up to area of concern in the left breast. A elyse was made with surgical scalpel. Under ultrasound guidance, a 12-gauge vacuum assisted biopsy gun device was used to obtain 5 core samples. Following this, a coil biopsy clip was left in lesion. The patient tolerated the procedure well without any immediate complication. The patient was kept in the radiology department for short stay after the procedure and then discharged home in stable condition. Postprocedure mammogram: The patient was transferred to mammography for physician ordered post procedure mammogram for clip placement verification. Impression: Successful, uncomplicated ultrasound guided core biopsy of area of concern in the left breast, full pathology results to follow. Pathology Results: Result: Benign, Fibrocystic change. LEFT BREAST, 11:00, ULTRASOUND GUIDED NEEDLE CORE BIOPSY: Fibrocystic changes including cysts and fibrosis. Tissue Density: Left: The breast tissue is heterogeneously dense. This may lower the sensitivity of mammography. Overall Assessment: Benign Assessment: MG diagnostic mammo LT wo CAD. - Left: Benign, BI-RAD 2. Management: Screening Mammogram of both breasts at age 39. Return to annual screening. Electronically signed and approved by: Tito Renteria D.O.
== END ==
LOC: RADUSWWP 12:48
PROVIDERS: ATTEND Family Medicine
DX: N60.12 Diffuse cystic mastopathy of left breast (principal)
CPT/HCPCS: 88305; 77065; 19083; A4648

== ENCOUNTER → 2023-10-01 | Outpatient (CLI) | payer OTHER ==
--- NOTE | 2023-10-01 16:05 | US ---
EXAMINATION TYPE: US pelvis complete transvag DATE OF EXAM: 10/01/2023 COMPARISON: NONE CLINICAL INDICATION: Female, 27 years old with history of N91.2 AMENORRHEA, UNSPECIFIED; Amenorrhea s amor May 2023. TECHNIQUE: Transvaginal (TV) and Transabdominal (TA) . Transabdominal sonographic images of the pel vis were acquired. Transvaginal sonographic images were medically necessary to better assess the fol lowing anatomy: Rt ovary Date of LMP: 06/21/23 EXAM MEASUREMENTS: Uterus: 7.7 x 4.6 x 2.9 cm Endometrial Stripe: 0.8 cm Right Ovary: 6.6 x 6.7 x 4.6 cm Left Ovary: 2.9 x 3.0 x 1.6 cm 1. Uterus: Anteverted Hypoechoic area seen near fundus measuring 1.4 x 1.4 x 1.2cm 2. Endometrium: wnl 3. Right Ovary: Heterogeneous avascular solid appearing area seen measuring 2.8 x 3.4 x 1.9cm. Large cystic area with septations seen measuring 5.6 x 6.5 x 4.0cm. There does appear to be some vasculari ty in the septations 4. Left Ovary: multiple follicles seen 5. Bilateral Adnexa: peristalsing bowel visualized 6. Posterior cul-de-sac: Small amount of free fluid seen Anteverted uterus with intramural fibroid near the fundus measuring up to 1.4 cm. An image is within normal thickness. Left ovary is unremarkable. Hypoechoic avascular lesion within the right ovary brennen uring up to 3.4 cm. Additional large cystic lesion with septations seen within the right ovary measur ing up to 6.5 cm. There is some vascularity identified within the septations. Small amount of fluid i dentified within the posterior cul-de-sac. IMPRESSION: 1. Right ovarian 3.4 cm solid-appearing indeterminate lesion. Further evaluation with MRI pelvis is r ecommended. 2. Right ovarian 6.5 cm cystic lesion with thick septations. Further evaluation with MRI pelvis is re commended. 3. Fibroid changes of the uterus.
== END | disposition home or self-care (01) ==
LOC: RADUSWWP 15:17
PROVIDERS: ATTEND Family Medicine
DX: N91.2 Amenorrhea, unspecified (principal); D25.9 Leiomyoma of uterus, unspecified; N83.201 Unspecified ovarian cyst, right side
CPT/HCPCS: 76830; 76856

== ENCOUNTER → 2023-11-09 | Outpatient (CLI) | payer OTHER ==
--- NOTE | 2023-12-07 13:37 | MR ---
Patient: Elena Bassett M Ordering Physician: Unknown, Unknown ID: [id number] Phone, Pager: Phone: N /A Pager: N/A : [phone] Age/Gender: 28Y, F Primary Location: N/A Procedure: MR pelvis wo/w con [facility] Date: 11/09/2023 7:40:16 PM EXAMINATION TYPE: MR pelvis wo/w con DATE OF EXAM: 11/20/2023 8:09 AM CLINICAL INDICATION: Ovarian cysts. COMPARISON: 10/01/2023 TECHNIQUE: Triplane multisequence imaging was performed of the pelvis. IV Contrast: cc 5.5 cc Gadavist. FINDINGS: Reproductive: Vagina: Unremarkable. Uterus: The uterus is anteverted in position. Uterus measures 7.3 x 3.1 x 5.2 cm. Arcuate morphology to the uterine fundus endometrium. The endometrium and junctional zone are within normal limits. Mul tiple nabothian cysts are seen in the lower uterine segment. Fibroid in the right uterine fundus brennen uring up to 17 mm. Ovaries: Right ovary with multiple large cysts measuring up to 6.3 x 6.0 x 6.4 cm. Left ovary measuri ng 3.0 x 3.3 x 2.7 cm. Is one right ovarian high T1 intrinsic signal alteration/hemorrhagic cyst brennen uring 5 mm. Bladder: Unremarkable. Bowel: Unremarkable as visualized. Peritoneum: A small amount of free fluid in the pelvis. Lymph nodes: No evidence of adenopathy. Vasculature: Unremarkable. Musculoskeletal: Bone marrow signal is within normal signal intensity. Abdominal wall/soft tissues: Unremarkable. IMPRESSION: 1. Enlarged right ovary with multiple simple and mildly complex cysts/follicles. Multiple follicles in the left ovary also present. Findings compatible with polycystic ovarian morphology. 2. Arcuate morphology to the uterine fundus. 3. Right uterine fundus fibroid.
== END | disposition home or self-care (01) ==
LOC: RADMRIMAIN 19:30
PROVIDERS: ATTEND Family Medicine
DX: D39.11 Neoplasm of uncertain behavior of right ovary (principal); D25.9 Leiomyoma of uterus, unspecified
CPT/HCPCS: 72197; A9585